=== PATIENT | female | born 1995 | race Caucasian/White ===

== ENCOUNTER 2021-10-12 18:57 | Emergency (ER) | payer OTHER ==
[~2021-10-12] VITALS: Ht 167.6 cm; Wt 111.1 kg
[2021-10-12 19:10] VITALS: BP_SYST 134
--- NOTE | 2021-10-12 19:18 | NUR ---
Patient to ER bed 7 to gown for evaluation. Side rails up. Report given to Minerva ACEVEDO.
[2021-10-12 19:49] LABS: BILIRUBIN,URINE 1+ (NEGATIVE); BLOOD, URINE NEGATIVE (NEGATIVE); COLOR,URINE YELLOW (YELLOW); GLUCOSE,URINE NEGATIVE (NEGATIVE); KETONES,URINE 2+ (NEGATIVE); LEUKOCYTE ESTERASE ,URINE NEGATIVE (NEGATIVE); NITRITE, URINE NEGATIVE (NEGATIVE); PH,URINE 5.5 (5.0-8.0); PROTEIN URINE 2+ (NEGATIVE); UROBILINOGEN,URINE 0.2 (0.2-1.0)
[2021-10-12 19:58] LABS: CLARITY/URINE HAZY (CLEAR)
--- NOTE | 2021-10-12 19:59 | NUR ---
DR. MG AT BEDSIDE FOR EVALUATION.
--- NOTE | 2021-10-12 19:59 | NUR ---
PATIENT AAOX4 AND AMBULATORY FROM HOME C/O RIGHT SIDED ABDOMINAL PAIN STATED HAVING +N/V X 2 DAYS. CURRENTLY STATING HAVING 6/10 ON THE PAIN SCALE. DENIES ANY VAGINAL BLEEDING. CURRENTLY ABOUT 12 WEEKS . STATING HAVING INCREASED FREQUENCY IN URINE.
[2021-10-12 20:02] LABS: BACTERIA,URINE MODERATE /HPF (None Seen); RBC,URINE 0-3 /HPF (0-3)
[2021-10-12 20:06] LABS: MUCUS,URINE None Seen /LPF (None Seen)
--- NOTE | 2021-10-12 20:12 | NUR ---
Blood for labwork drawn. Patient tolerated WELL.
[2021-10-12] MEDS ORDERED: ACETAMINOPHEN 500 MG TABLET PO ONE (20:15)
[2021-10-12] MEDS ORDERED: ONDANSETRON HCL 4 MG/2 ML VIAL IVP ONE (20:15)
[2021-10-12 20:26] LABS: BASOPHILS % (AUTO) 0.1 % (0.0-2.0); EOSINOPHILS % (AUTO) 0.2 % (0.0-4.0); HEMATOCRIT 40.2 % (36-48); HEMOGLOBIN 13.4 g/dL (12.0-16.0); LYMPHOCYTES % (AUTO) 13.2 % (20.5-51.5); MEAN CORPUSCULAR HEMOGLOBIN 30 pg (27-31); MEAN CORPUSCULAR HGB CONC 33 % (32-36); MEAN CORPUSCULAR VOLUME 89 fL (79.0-98.0); MONOCYTES # (AUTO) 0.6 K/uL (0.0-1.0); MONOCYTES % (AUTO) 3.7 % (1.7-9.3); NEUTROPHILS # (AUTO) 12.7 K/uL (1.8-7.7); NEUTROPHILS % (AUTO) 82.8 % (40.0-70.0); PLATELET COUNT (AUTO) 292 K/uL (130-430); RED BLOOD CELL COUNT(AUTO) 4.54 MIL/uL (4.2-6.2); RED CELL DISTRIBUTION WIDTH 12.5 % (9.0-15.0); WHITE BLOOD COUNT (AUTO) 15.4 K/uL (4.8-10.8)
--- NOTE | 2021-10-12 20:29 | NUR ---
# 20 gauge angiocath placed to RIGHT AC. Use of asceptic technique. Opsite placed over site. Blood return noted. Flushed with 10 cc of normal saline. No evidence of infiltration noted. Patient tolerated well.
--- NOTE | 2021-10-12 20:35 | NUR ---
Patient transported to radiology ULTRASOUND via AMBULATORY, accompanied by TECH AND SELF.
[2021-10-12 20:39] LABS: CALCIUM 9.7 mg/dL (8.4-11.0); CREATININE 0.54 mg/dL (0.55-1.30); POTASSIUM 3.9 mmol/L (3.5-5.1)
--- NOTE | 2021-10-12 20:55 | NUR ---
PT BACK FROM ULTRASOUND.
[2021-10-12 21:07] LABS: ALBUMIN 3.5 g/dL (3.4-4.8); TOTAL BILIRUBIN 0.3 mg/dL (0.0-1.0)
--- NOTE | 2021-10-12 21:55 | NUR ---
Patient resting quietly. No acute distress noted. Vital signs within normal range. AWAITING FOR DISPOSITION.
--- NOTE | 2021-10-13 00:03 | NUR ---
Patient to be transferred to [facility]. Is being transferred due to INSURANCE. Receiving facility has accepting physician and available space. ER physician has signed transfer form. Patient or responsible libertarian has agreed to transfer and signed form. Patient belongings inventoried and will be sent with patient. Copy of nursing notes, lab reports, EKG, Physicians Orders and X-rays to be sent with patient. Report called to CURTIS CASIANO at receiving facility. Receiving physician is NIYAH HAWK. [facility] ambulance service has been called for transfer. ETA is [id number].
[2021-10-13 00:06] VITALS: BP_SYST 132
== END 2021-10-13 00:03 | disposition short-term general hospital (02) ==
LOC: SED 18:57
DX: O26.891 Other specified pregnancy related conditions, first trimester (principal); R10.11 Right upper quadrant pain; O21.8 Other vomiting complicating pregnancy; E66.01 Morbid (severe) obesity due to excess calories; Z3A.11 11 weeks gestation of pregnancy; Z20.822 Contact with and (suspected) exposure to COVID-19
CPT/HCPCS: 36415; 76705; 76815; 80053; 81000; 83690; 84702; 85025; 86901; 87426; 96374; 99285; J2405